=== PATIENT | male | born 1965 | race Caucasian/White ===

== ENCOUNTER → 2017-05-16 | Outpatient (CLI) | payer OTHER ==
--- NOTE | 2017-05-16 16:13 | PCVCIMAG ---
APPROVED REPORT Exam: Stress Echocardiogram Indication: Dyspnea on Exertion Patient Location: Echo lab Stress Nurse: Dominique Corbin RN Status: routine Ht: 6 ft 0 in HR: 50 bpm BP: 142/98 mmHg Rhythm: Bradycardia Procedure The patient underwent an Exercise Stress Test using the Meme Protocol. Blood pressure, heart rate, and EKG were monitored. An Echocardiogram was performed by endoscopy technician in four stages in quad fashion. At peak stress, four selected images were obtained and placed side by side with resting images for comparison. Stress Test Details Stress Test: Exercise stress testing was performed using a Meme protocol. HR Resting HR: 50 bpmMax Heart Rate (APMHR): 170 bpm Max HR Achieved: 137 bpmTarget HR (85% APMHR): 144 bpm % of APMHR: 80 Recovery HR: 70 bpm HR response to stress: Normal HR response to stress BP Resting BP: 142/98 mmHg Max BP: 190/90 mmHg Recovery BP: 160/80 mmHg ECG Resting ECG: Sinus Bradycardia Stress ECG: Sinus Rhythm ST Change: Non-ischemic Arrhythmia: Frequent bigeminy during exercise. Recovery ECG: Sinus Rhythm Recovery ST Change: Non-ischemic Recovery Arrhythmia: Frequent PVC's, bigeminy. Clinical Reason for Termination: Dyspnea, Chest discomfort Stress Symptoms: Dyspnea, Chest discomfort Exercise duration: 9 min 00 sec Highest Stage Achieved: Stage 3: 3.4 mph at 14% grade. Exercise capacity: 10.40 METs Overall Exercise Capacity for Age: Average Stress ECG Conclusion The patient exercised according to the MEME Protocol for 9:00 min:s, achieving a work levbel of Max. METS: 10.40. The resting heart rate of 50 bpm aixa to a maximal heart rate of 137 bpm. This value represents 80% of the maximal, age-predicted heart rate. The resting blood pressure of 142/98 mmHg, aixa to a maximum blood pressure of 190/90 mmHg. The exercise test was stopped due to Dyspnea and chest discomfort. Pre-Stress Echo The resting Echocardiogram showed normal left ventricular contractility with an estimated Ejection Fraction of about >55%. Normal wall motion in all segments on baseline images. Post-Stress Echo The stress Echocardiogram showed abnormal left ventricular contractility with an estimated Ejection Fraction of about 50-55%. The stress Echocardiogram demonstrated wall motion abnormality in the apical septal, apical anterior, apex rueda. Conclusion Clinical Response: Ischemic Exercise Capacity: Average Stress ECG Response: Equivocal Stress Echo Images: Ischemic 1 high risk study for inducible ischemia No prior study available for comparison. Other Information Study Quality: Adequate <Conclusion> 1 high risk study for inducible ischemia
== END | disposition home or self-care (01) ==
LOC: PCVCIMAG 13:20
PROVIDERS: ATTEND Internal Medicine
DX: I25.89 Other forms of chronic ischemic heart disease (principal); I49.3 Ventricular premature depolarization; R00.2 Palpitations; R94.31 Abnormal electrocardiogram [ECG] [EKG]; K21.9 Gastro-esophageal reflux disease without esophagitis
CPT/HCPCS: 93325; 93351